=== PATIENT | male | born 1970 | race African-American/Black ===

== ENCOUNTER 2017-10-04 04:48 | Emergency (ER) | payer MEDICAID ==
[~2017-10-04] VITALS: Ht 167.6 cm; Wt 65.0 kg
[2017-10-04] MEDS ORDERED: HYDROCODONE/ACETAMINOPHEN 5/325MG TABLET PO STA (06:51)
[2017-10-04] MEDS ORDERED: SODIUM CHLORIDE 0.9% 1,000 ML IV ONE (06:51)
[2017-10-04 07:00] LABS: CLARITY URINE CLEAR (CLEAR); COLOR URINE YELLOW (YELLOW); KETONES URINE NEGATIVE (NEGATIVE); LEUKOCYTE ESTERASE URINE NEGATIVE (NEGATIVE); NITRITE URINE NEGATIVE (NEGATIVE); OCCULT BLOOD URINE 2+ (NEGATIVE); PROTEIN URINE NEGATIVE (NEGATIVE); SPECIFIC GRAVITY URINE 1.018 (1.005-1.030)
[2017-10-04 07:37] LABS: CHLORIDE 107 mEq/L (98-107)
[2017-10-04 07:39] LABS: INR 1.2; PROTHROMBIN TIME 12.4 sec (9.4-11.6)
[2017-10-04 07:49] LABS: BASOPHILS % 1.1 % (0.0-2.0); EOSINOPHILS % 0.7 % (0.0-5.0); HEMATOCRIT. 37.8 % (42.0-52.0); HEMOGLOBIN. 13.6 g/dL (14.0-18.0); LYMPHOCYTES % 63.7 % (20.0-50.0); MEAN CORPUSCULAR HEMOGLOBIN 31.8 pg (28.0-32.0); MEAN PLATELET VOLUME 7.9 fl (7.4-10.4); MONOCYTES % 5.6 % (2.0-8.0); NEUTROPHILS % 28.9 % (40.0-76.0); PLATELET 182 x1000/uL (130-400); RED BLOOD CELL COUNT 4.29 mill/uL (4.7-6.1); RED CELL DISTRIBUTION WIDTH 14.6 % (11.6-14.6)
[2017-10-04] MEDS ORDERED: MORPHINE SULFATE 4 MG/ML CPJ (NOT FOR IM USE) IV ONE (08:30)
[2017-10-04 09:58] VITALS: BP 149/85
== END 2017-10-04 10:10 | disposition home or self-care (01) ==
LOC: ER 04:48
DX: K42.9 Umbilical hernia without obstruction or gangrene (principal); M19.90 Unspecified osteoarthritis, unspecified site; F17.200 Nicotine dependence, unspecified, uncomplicated
CPT/HCPCS: 36415; 74176; 80053; 81003; 83690; 85025; 85610; 96361; 96374; 99285; J2270; J7030; Z7610

== ENCOUNTER 2020-10-15 15:41 | Inpatient (IN) | payer MEDICAID ==
[~2020-10-15] VITALS: Ht 167.6 cm; Wt 58.5 kg
[2020-10-15] MEDS ORDERED: SODIUM CHLORIDE 0.9% 1,000 ML IV ONE (16:15)
[2020-10-15 16:32] LABS: HEMATOCRIT. 34.6 % (42.0-52.0); HEMOGLOBIN. 11.8 g/dL (14.0-18.0); MEAN CORPUSCULAR HEMOGLOBIN 30.6 pg (28.0-32.0); MEAN CORPUSCULAR VOLUME 90.2 fL (80.0-94.0); MEAN PLATELET VOLUME 7.6 fl (7.4-10.4); PLATELET 278 x1000/uL (130-400); RED BLOOD CELL COUNT 3.84 mill/uL (4.7-6.1); RED CELL DISTRIBUTION WIDTH 13.7 % (11.6-14.6)
[2020-10-15 16:35] LABS: CHLORIDE 105 mEq/L (98-107)
[2020-10-15 16:46] LABS: PLATELET ESTIMATE NORMAL
[2020-10-15 17:01] LABS: ETHANOL BLOOD 334 mg/dL
[2020-10-15] MEDS ORDERED: DEXAMETHASONE 4MG/ML 1ML VIAL IV ONE (19:45)
[2020-10-15] MEDS ORDERED: CEFTRIAXONE 1 G PREMIX 50 ML IV ONE (19:45)
[2020-10-15] MEDS ORDERED: AZITHROMYCIN 500 MG in DEXT 5% WATER 250 ML IV ONE (19:45)
[2020-10-15 21:36] LABS: CLARITY URINE CLEAR (CLEAR); COLOR URINE YELLOW (YELLOW); KETONES URINE NEGATIVE (NEGATIVE); LEUKOCYTE ESTERASE URINE NEGATIVE (NEGATIVE); NITRITE URINE NEGATIVE (NEGATIVE); OCCULT BLOOD URINE 1+ (NEGATIVE); PH URINE 6.5 (4.5-8.0); PROTEIN URINE NEGATIVE (NEGATIVE); SPECIFIC GRAVITY URINE 1.009 (1.005-1.030); UROBILINOGEN URINE 0.2 E.U./dL (0.2-1.0)
[2020-10-15 21:51] LABS: *BENZODIAZEPINES SCREEN URINE NEGATIVE (NEGATIVE); *COCAINE SCREEN URINE NEGATIVE (NEGATIVE); METHADONE URINE SCREEN NEGATIVE (NEGATIVE)
[2020-10-15 21:52] LABS: *AMPHETAMINES SCREEN URINE NEGATIVE (NEGATIVE)
[2020-10-15 21:57] LABS: OPIATES URINE SCREEN PRESUMTIVE POSITIVE (NEGATIVE); PHENCYCLIDINE URINE SCREEN NEGATIVE (NEGATIVE)
[2020-10-15 21:58] LABS: CANNABINOID URINE SCREEN NEGATIVE (NEGATIVE)
[2020-10-15 22:00] LABS: *BARBITURATES SCREEN URINE NEGATIVE (NEGATIVE)
[2020-10-15 23:57] VITALS: BP 124/94
[2020-10-16] MEDS ORDERED: ALBUTEROL 6.7GM HFA INHALER ORI PRN (00:30)
[2020-10-16] MEDS ORDERED: ACETAMINOPHEN 325MG TABLET PO PRN (00:30)
[2020-10-16] MEDS ORDERED: TC1C15 TP (02:21)
[2020-10-16] MEDS ORDERED: LORA10TA7 PO (02:21)
[2020-10-16] MEDS ORDERED: HYDR-4001 PO (02:21)
[2020-10-16] MEDS ORDERED: ONDANSETRON HCL 4MG/2ML INJ IV PRN (03:15)
[2020-10-16 04:00] VITALS: BP 151/91
[2020-10-16] MEDS: LORAZEPAM 2MG/ML CPJ IV PRN ×2 (04:12→19:54)
[2020-10-16 05:57] VITALS: BP 124/94
[2020-10-16 08:00] VITALS: BP 145/79
[2020-10-16] MEDS: CEFTRIAXONE 1,000 MG in DEXTROSE 5% WATER 50 ML IV SCH (08:53)
[2020-10-16] MEDS: ENOXAPARIN 40MG/0.4ML SYR SUBCUT SCH (08:54)
[2020-10-16] MEDS ORDERED: CEFTRIAXONE 1 G PREMIX 50 ML IV SCH (09:00)
[2020-10-16 14:00] VITALS: BP 144/96
[2020-10-16] MEDS: CHLORDIAZEPOXIDE 25MG CAPSULE PO SCH ×2 (14:20→22:35)
[2020-10-16] MEDS: AZITHROMYCIN 500 MG in DEXT 5% WATER 250 ML IV SCH (14:20)
[2020-10-16] MEDS: HYDROCODONE/ACETAMINOPHEN 10/325MG TABLET PO PRN ×2 (14:21→21:09)
[2020-10-16 16:00] VITALS: BP 144/96
[2020-10-16 20:00] VITALS: BP 137/98
[2020-10-16] MEDS: NICOTINE 21MG PATCH TD SCH (21:38)
[2020-10-17] VITALS: BP 137/95
[2020-10-17] MEDS: HYDROCODONE/ACETAMINOPHEN 10/325MG TABLET PO PRN ×2 (03:16→09:17)
[2020-10-17 04:00] VITALS: BP 144/92
[2020-10-17] MEDS: CHLORDIAZEPOXIDE 25MG CAPSULE PO SCH ×2 (06:00→13:30)
[2020-10-17] MEDS: CEFTRIAXONE 1,000 MG in DEXTROSE 5% WATER 50 ML IV SCH (09:05)
[2020-10-17] MEDS: NICOTINE 21MG PATCH TD SCH (09:05)
[2020-10-17] MEDS: ENOXAPARIN 40MG/0.4ML SYR SUBCUT SCH (09:05)
[2020-10-17 09:17] VITALS: BP 138/88
[2020-10-17] MEDS: AZITHROMYCIN 500 MG in DEXT 5% WATER 250 ML IV SCH (13:29)
[2020-10-17] MEDS ORDERED: HYDR-4009 PO (14:08)
== END 2020-10-17 14:45 | disposition home or self-care (01) | DRG 812 ==
LOC: ER 15:41 → 7WST 20:28 → ENRESERV 21:06 → 5WST 10-16 10:21
PROVIDERS: ADMIT Internal Medicine; ATTEND Internal Medicine
DX: T40.601A Poisoning by unspecified narcotics, accidental (unintentional), initial encounter (principal); F17.210 Nicotine dependence, cigarettes, uncomplicated; M06.9 Rheumatoid arthritis, unspecified; R25.1 Tremor, unspecified; F10.129 Alcohol abuse with intoxication, unspecified; Y90.9 Presence of alcohol in blood, level not specified; E44.0 Moderate protein-calorie malnutrition; Z20.822 Contact with and (suspected) exposure to COVID-19; D64.9 Anemia, unspecified; J18.9 Pneumonia, unspecified organism; Y92.89 Other specified places as the place of occurrence of the external cause; Z68.20 Body mass index [BMI] 20.0-20.9, adult; Z71.6 Tobacco abuse counseling
CPT/HCPCS: 36415; 71045; 80053; 80305; 80320; 81003; 83036; 83605; 83880; 84145; 84484; 85025; 93005; 99291; C1893; J0456; J0696; J1100; J1650; J2060; J2405; J7030; J7040; J7060; U0003; G0480

== ENCOUNTER 2020-12-21 11:35 | Emergency (ER) | payer MEDICAID ==
[~2020-12-21] VITALS: Ht 177.8 cm; Wt 63.0 kg
[~2020-12-21 11:35] MED LIST: HYDR-4001 PO; HYDR-4009 PO; LORA10TA7 PO; TC1C15 TP
[2020-12-21 12:08] LABS: HEMATOCRIT. 36.9 % (42.0-52.0); HEMOGLOBIN. 13.3 g/dL (14.0-18.0); MEAN CORPUSCULAR HEMOGLOBIN 32.8 pg (28.0-32.0); MEAN CORPUSCULAR VOLUME 90.9 fL (80.0-94.0); MEAN PLATELET VOLUME 8.2 fl (7.4-10.4); PLATELET 156 x1000/uL (130-400); RED BLOOD CELL COUNT 4.06 mill/uL (4.7-6.1); RED CELL DISTRIBUTION WIDTH 15.8 % (11.6-14.6)
[2020-12-21 12:15] LABS: CHLORIDE 101 mEq/L (98-107)
[2020-12-21 12:19] LABS: ETHANOL BLOOD 20 mg/dL
[2020-12-21 12:50] LABS: PLATELET ESTIMATE NORMAL
[2020-12-21] MEDS ORDERED: ACETAMINOPHEN 325MG TABLET PO NR (13:30)
[2020-12-21] MEDS ORDERED: HYDROCODONE/ACETAMINOPHEN 10/325MG TABLET PO ONE (15:00)
[2020-12-21 15:15] VITALS: BP 144/92
[2020-12-21 15:46] LABS: CLARITY URINE CLEAR (CLEAR); COLOR URINE YELLOW (YELLOW); KETONES URINE 1+ (NEGATIVE); LEUKOCYTE ESTERASE URINE NEGATIVE (NEGATIVE); NITRITE URINE NEGATIVE (NEGATIVE); OCCULT BLOOD URINE 3+ (NEGATIVE); PH URINE 5.5 (4.5-8.0); PROTEIN URINE NEGATIVE (NEGATIVE); SPECIFIC GRAVITY URINE 1.015 (1.005-1.030); UROBILINOGEN URINE 0.2 E.U./dL (0.2-1.0)
[2020-12-21 15:59] LABS: *AMPHETAMINES SCREEN URINE PRESUMTIVE POSITIVE (NEGATIVE); *BARBITURATES SCREEN URINE NEGATIVE (NEGATIVE); *BENZODIAZEPINES SCREEN URINE NEGATIVE (NEGATIVE); *COCAINE SCREEN URINE NEGATIVE (NEGATIVE)
[2020-12-21 16:00] LABS: CANNABINOID URINE SCREEN NEGATIVE (NEGATIVE); METHADONE URINE SCREEN NEGATIVE (NEGATIVE); OPIATES URINE SCREEN PRESUMTIVE POSITIVE (NEGATIVE); PHENCYCLIDINE URINE SCREEN NEGATIVE (NEGATIVE)
== END 2020-12-21 15:45 | disposition home or self-care (01) ==
LOC: ER 11:35
DX: L40.9 Psoriasis, unspecified (principal); H04.123 Dry eye syndrome of bilateral lacrimal glands; R03.0 Elevated blood-pressure reading, without diagnosis of hypertension; M06.9 Rheumatoid arthritis, unspecified
CPT/HCPCS: 36415; 80053; 80305; 80320; 81003; 85025; 99283; G0480

== ENCOUNTER 2022-01-25 09:42 | Emergency (ER) | payer BC ==
[~2022-01-25] VITALS: Ht 165.1 cm; Wt 70.0 kg
[2022-01-25 09:46] VITALS: BP 120/63
[2022-01-25] MEDS ORDERED: HYDROCODONE/ACETAMINOPHEN 5/325MG TABLET PO ONE (10:15)
[2022-01-25] MEDS ORDERED: TETANUS, DIPHTHERIA, PERTUSSIS VAC/PF 0.5ML (>10YR OLD) IM ONE (10:15)
[2022-01-25] MEDS ORDERED: AMOXICILLIN/POTASSIUM CLAVULANATE 875/125MG TAB PO ONE (10:15)
[2022-01-25] MEDS ORDERED: IBUP-2029 MT (10:35)
[2022-01-25] MEDS ORDERED: T3 PO (10:35)
[2022-01-25] MEDS ORDERED: AMOX1TAB16 MT (10:35)
== END 2022-01-25 11:04 | disposition home or self-care (01) ==
LOC: ER 09:42
DX: S71.051A Open bite, right hip, initial encounter (principal); W54.0XXA Bitten by dog, initial encounter; Y93.89 Activity, other specified; Y92.89 Other specified places as the place of occurrence of the external cause; Y99.8 Other external cause status
CPT/HCPCS: 90471; 90715; 99283

== ENCOUNTER 2022-07-21 05:12 | Emergency (ER) | payer BC, MEDICAID ==
[~2022-07-21] VITALS: Ht 170.2 cm; Wt 58.3 kg
[~2022-07-21 05:12] MED LIST changes: +AMOX1TAB16 MT; +IBUP-2029 MT; +T3 PO
[2022-07-21 05:30] VITALS: BP 134/90
[2022-07-21] MEDS ORDERED: ACETAMINOPHEN 325MG TABLET PO ONE (06:15)
[2022-07-21] MEDS ORDERED: TOPUD PO (08:15)
[2022-07-21] MEDS ORDERED: TUSSL PO (08:16)
== END 2022-07-21 08:57 | disposition home or self-care (01) ==
LOC: ER 05:12
DX: B34.9 Viral infection, unspecified (principal); Z20.822 Contact with and (suspected) exposure to COVID-19; M06.9 Rheumatoid arthritis, unspecified
CPT/HCPCS: 71045; 87426; 87804; 99284; C9803